=== PATIENT | female | born 1975 | race Caucasian/White ===

== ENCOUNTER 2019-10-25 18:50 | Emergency (ER) | payer MEDICAID, SELFPAY ==
[2019-10-25 18:51] VITALS: BP 156/82; PULSE 86; RESP 16; TEMP 36.3; O2SAT 97; BMI 36.0
--- NOTE | 2019-10-25 19:01 | ED.VIS.DENTA ---
History of Present Illness Chief Complaint: Dental Informant: Patient Onset: Days - 2 Context: Onset with activity - since root canal Timing: Continuous Quality: sore Location: left maxillary area and tooth #13 where root canal performed Current Severity: Severe Maximum Severity: Severe Worsened by: eating Relieved by: - - t#3 and percocet Associated Symptoms: Facial Swellling - was present prior to root canal, - - no fevers Narrative: Patient is 11 weeks . She is a type I diabetic. She has been having dental pain and a left maxillary bicuspid as well as swelling. She was put on penicillin and did not solve anything, she had a root canal maybe 5 weeks ago that apparently was incompletely performed and the dentist completed it 2 days ago, and since the root canal her pain has been severe. She was prescribed Tylenol 3, it helped a little, she took a leftover Percocet from something else later today, it helped a little as well but now the pain medicine is wearing off and she is not sure what else to do to get through this. She states that her blood sugars have been in the 100s. She denies any fevers or purulent discharge or worsening swelling. She has 1 more pill of the antibiotic left. Denies any problems with the , vaginal symptoms, pain. - Past Medical History (1) Type 1 diabetes mellitus Status: Chronic Past Medical History - Allergies and Home Meds Allergies/Adverse Reactions: Allergies No Known Allergies Allergy (Verified 10/25/19 18:52) Primary Care Physician: Saba Mar NP-C [Primary Care Provider] - Lives: With Family Drugs: None Review of Systems General: Denies: Chills, Fever, Sweats Eyes: Denies: Visual changes - bilaterally, Diplopia ENT: Reports: - - Dental pain and facial swelling cranial to the affected tooth. Denies: Bilateral ear pain, Rhinorrhea, Sore throat Cardiovascular: Denies: Chest pain, Palpitations Respiratory: Denies: Dyspnea, Cough, Dyspnea on exertion Gastrointestinal: Denies: Abdominal pain, Nausea, Vomiting, Diarrhea, Melena, Hematochezia Skin: Denies: Rash, Wounds Physical Exam Vital Signs/Narrative: Vital Signs Temp Pulse Resp BP Pulse Ox 10/25/19 18:51 97.4 F L 86 16 156/82 H 97 Inital Vital Signs reviewed: Yes General: Well nourished, Well developed, - - NAD Head: Normocephalic, Atraumatic ENT: Moist mucous membranes, No rhinorrhea. Negative for: Sinus tenderness - but tender in soft tissues overlying left maxillary sinus; no fluctuance or definite drainable collection/abscess Mouth/Throat: No focal abscess, Tenderness on tooth percussion - #13 most tender; also mildly tender teeth #12, 14; 13-15 all w/ fillings present; also tender in soft tissues superior to affected tooth w/o abscess.. Negative for: Dental abscess, Trismus Neck: Supple, No lymphadenopathy, Nontender Respiratory: No distress Skin: Normal color, No rash, No Trauma Neurological: Alert, Oriented x3, Cranial nerves II-XII grossly intact, Normal Strength, Normal Sensation, Normal Gait Psychological: Normal affect, Normal Mood Diagnostic/Tx/Re-eval - Medical Decision Making Regional and Local Dental Anesthesia: Marcaine - w/ epi, 1.8cc, Local Supraperiosteal Dental Injection - and infraorbital block 1 cartridge of Marcaine with epinephrine was placed in the supraperiosteal and infraorbital nerves region. There was no purulent material able to be aspirated prior to injection. This resulted in significant improvement in her pain. She is comfortable with discharge home. I recommend limiting narcotics much as possible given her . Advised to follow-up with dentistry or return if the swelling worsens to suggest an abscess. ED Disposition - Plan for ED Patient: Disposition: Home or Assisted Living Diagnosis: Postoperative pain, Odontalgia Instructions: Dental Pain Referrals: Saba Mar, [facility] [Primary Care Provider] - Dentist,Your [STAFF PHYSICIAN] - 3-5 Days if not improving
[2019-10-25 20:00] VITALS: BP 115/81; PULSE 74; RESP 16; O2SAT 100
== END 2019-10-25 20:01 | disposition home or self-care (01) ==
PROVIDERS: Emergency Provider Emergency Medicine; Family Provider Nurse Practitioner Primary Care; PCP Nurse Practitioner Primary Care
DX: O99.89 Other specified diseases and conditions complicating pregnancy, childbirth and the puerperium (principal); K08.89 Other specified disorders of teeth and supporting structures; Z98.818 Other dental procedure status; Z98.811 Dental restoration status; O24.012 Pre-existing type 1 diabetes mellitus, in pregnancy, second trimester; E10.9 Type 1 diabetes mellitus without complications; Z79.4 Long term (current) use of insulin; Z3A.11 11 weeks gestation of pregnancy
CPT/HCPCS: 64400; 64999; 99282

== ENCOUNTER → 2020-10-30 12:15 | Outpatient (CLI) | payer MEDICAID, SELFPAY ==
[2020-10-30 16:18] LABS: Internal QC Validated? YES +Cl - CLEAR BKGD; Pregnancy, Serum, hCG Quali. NEGATIVE Negative
== END ==
PROVIDERS: PCP Nurse Practitioner Primary Care; Visit Provider Ophthalmology
DX: Z34.90 Encounter for supervision of normal pregnancy, unspecified, unspecified trimester (principal)
CPT/HCPCS: 36415; 84703

== ENCOUNTER → 2020-12-01 12:02 | Outpatient (CLI) | payer MEDICAID, SELFPAY ==
[2020-12-01 15:40] LABS: Internal QC Validated? YES +Cl - CLEAR BKGD; Pregnancy, Serum, hCG Quali. NEGATIVE Negative
== END ==
PROVIDERS: PCP Family Medicine; Referring Provider Ophthalmology; Visit Provider Ophthalmology
DX: H26.9 Unspecified cataract (principal)
CPT/HCPCS: 36415; 84703